=== PATIENT | male | born 1980 | race Caucasian/White ===

== ENCOUNTER 2019-11-07 21:22 | Inpatient (IN) | payer SELFPAY ==
[~2019-11-07] VITALS: Ht 180.3 cm; Wt 97.2 kg
[2019-11-07 21:36] VITALS: BP 143/103
[2019-11-07 22:29] LABS: BASO % 0.3 % (0.0-1.0); EOS # 0.1 10*3/uL (0.0-0.4); EOS % 1.4 % (1.0-4.0); HEMATOCRIT 47.2 % (42.0-52.0); HEMOGLOBIN 17.2 g/dl (14.0-18.0); LYMPH # 1.7 10*3/uL (1.3-4.4); LYMPH % 28.7 % (27.0-41.0); MEAN CELL VOLUME 101.9 fl (80.0-94.0); MEAN CORPUSCULAR HGB 37.1 pg (27.0-31.0); MEAN CORPUSCULAR HGB CONC 36.4 g/dl (33.0-37.0); MEAN PLATELET VOLUME 10.6 fl (9.6-12.3); MONO # 0.4 10*3/uL (0.1-1.0); MONO % 6.1 % (3.0-9.0); NEUT # 3.7 10*3/uL (2.3-7.9); NEUT % 63.2 % (47.0-73.0); PLATELET COUNT AUTOMATED 89 10*3/uL (130-400); RED BLOOD COUNT 4.63 10*6/uL (4.50-5.90); WHITE BLOOD COUNT 5.9 10*3/uL (4.8-10.8)
[2019-11-07 22:42] LABS: CHLORIDE 93 mmol/L (98-107); CREATININE 1.25 mg/dL (0.70-1.30); POTASSIUM 3.7 mmol/L (3.5-5.1); SODIUM 127 mmol/L (136-145)
[2019-11-07 22:51] LABS: BUN 10 mg/dl (7-24); ETHYL ALCOHOL < 3.0 mg/dl (<3)
[2019-11-07 22:52] LABS: ACETAMINOPHEN (TYLENOL) < 5.0 ug/ml (10-30)
[2019-11-07 22:59] LABS: BILIRUBIN NEGATIVE (NEGATIVE); BLOOD NEGATIVE (NEGATIVE); CLARITY CLEAR (CLEAR); COLOR ORANGE (YELLOW); GLUCOSE NEGATIVE (NEGATIVE); KETONE NEGATIVE (NEGATIVE); NITRITE NEGATIVE (NEGATIVE); PH 6.5 (5.0-9.0); SPECIFIC GRAVITY 1.015 (1.005-1.030)
[2019-11-07 23:00] LABS: LEUKO ESTERASE NEGATIVE (NEGATIVE)
[2019-11-07 23:14] LABS: URINE AMPHETAMINES < 1000 (1000ng/ml); URINE BARBITURATES < 200 (200ng/ml); URINE BENZODIAZEPINES < 200 (200ng/ml); URINE CANNABINOIDS (THC) < 50 (50ng/ml); URINE COCAINE < 300 (300ng/ml); URINE METHADONE < 300 (300ng/ml); URINE OPIATES < 300 (300ng/ml); URINE PHENCYCLIDINE < 25 (25ng/ml)
[2019-11-07 23:37] LABS: ALBUMIN 3.4 gm/dl (3.1-4.5)
--- NOTE | 2019-11-07 23:52 | NUR ---
PATIENT RESTING COMFORTABLY IN BED AT THIS TIME WITH EYES CLOSED. IV INFUSING PER ORDERS. RN WILL CONTINUE TO MONITOR.
[2019-11-08 00:45] VITALS: BP 140/94
--- NOTE | 2019-11-08 01:21 | NUR ---
Patient with noticable tremors in upper extremities. Restless legs, muscle aches, cold sweats, stomach discomfort. Ativan, zofran, robaxin, vistaril, bentyl given. Will monitor and reassess.
--- NOTE | 2019-11-08 03:07 | NUR ---
Patient awake, no agitation, still noticeable tremors. Asking for a snack. Denies any nausea at this time.
[2019-11-08 04:00] VITALS: BP 118/70
[2019-11-08 08:00] VITALS: BP 125/77
[2019-11-08 08:55] LABS: BASO % 0.5 % (0.0-1.0); EOS # 0.1 10*3/uL (0.0-0.4); HEMATOCRIT 45.2 % (42.0-52.0); HEMOGLOBIN 15.5 g/dl (14.0-18.0); LYMPH # 2.6 10*3/uL (1.3-4.4); LYMPH % 43.9 % (27.0-41.0); MEAN CELL VOLUME 104.9 fl (80.0-94.0); MEAN CORPUSCULAR HGB CONC 34.3 g/dl (33.0-37.0); MONO # 0.3 10*3/uL (0.1-1.0); MONO % 5.7 % (3.0-9.0); NEUT # 2.8 10*3/uL (2.3-7.9); NEUT % 48.4 % (47.0-73.0); NUCLEATED RED BLOOD CELL 0.3 % (0.0-0.0); PLATELET COUNT AUTOMATED 73 10*3/uL (130-400); RED BLOOD COUNT 4.31 10*6/uL (4.50-5.90); RED CELL DISTRI WIDTH 14.1 % (0-14.5); WHITE BLOOD COUNT 5.8 10*3/uL (4.8-10.8)
[2019-11-08 10:04] LABS: ALKALINE PHOSPHATASE 145 U/L (45-117); BUN 6 mg/dl (7-24); CHLORIDE 97 mmol/L (98-107); CREATININE 1.44 mg/dL (0.70-1.30); PHOSPHOROUS 2.2 mg/dL (2.5-4.9); POTASSIUM 3.8 mmol/L (3.5-5.1); SGOT/AST 246 IU/L (3-35); SGPT/ALT 129 U/L (12-78); SODIUM 133 mmol/L (136-145); TOTAL PROTEIN 7.3 gm/dL (6.4-8.2)
[2019-11-08 10:19] LABS: CHOLESTEROL 413 mg/dL (<200); HDL CHOLESTEROL 50 mg/dl (40-60)
[2019-11-08 10:20] LABS: TRIGLYCERIDES 1614 mg/dl (<150)
[2019-11-08 12:00] VITALS: BP 129/89
--- NOTE | 2019-11-08 12:06 | NUR ---
pt remains with visable tremors, has somewhat difficulity holding a glass steady to drink water
--- NOTE | 2019-11-08 12:06 | NUR ---
prn robaxin,bentyl,vistaril given for etoh withdrawal
--- NOTE | 2019-11-08 13:57 | NUR ---
PRN MEDS APPEAR TO BE EFFECTIVE, PT RESTING QUIETLY, WITH NO TREMORS NOTED
[2019-11-08 16:00] VITALS: BP 134/89
--- NOTE | 2019-11-08 16:52 | NUR ---
[place] STAFF IN TO SEE PATIENT. PATIENT DOES NOT MEET [place]. PROVIDED PATIENT WITH REFERRAL OPTIONS. BONIFACIO ALFONSO B.A. [employer]
[2019-11-08 20:00] VITALS: BP 122/77
--- NOTE | 2019-11-08 20:00 | NUR ---
Patient resting, no signs of distress. Awoke easily and denied any needs at this time. Patient has noticeable tremors to upper extremities. Appropriate at this time. Will continue to monitor.
[2019-11-09] VITALS: BP 109/70
[2019-11-09 04:00] VITALS: BP 136/94
--- NOTE | 2019-11-09 04:37 | NUR ---
Patient has slept through the night, with no distress. Awakes easily for meds and labs. Patient denies any needs at this time. Patient appropriate, no signs of agitation or aggression. Will continue to monitor.
[2019-11-09 05:01] LABS: BUN 5 mg/dl (7-24); CHLORIDE 105 mmol/L (98-107); CREATININE 1.28 mg/dL (0.70-1.30); POTASSIUM 3.6 mmol/L (3.5-5.1); SODIUM 140 mmol/L (136-145)
[2019-11-09 08:00] VITALS: BP 130/93
--- NOTE | 2019-11-09 11:38 | NUR ---
REQUIP HAS BEEN EFFECTIVE FOR RELIEF OF LEG CRAMPS
--- NOTE | 2019-11-09 12:39 | NUR ---
BENDRYL MODERATELY EFFECTIVE
[2019-11-09 16:00] VITALS: BP 130/64
--- NOTE | 2019-11-09 16:25 | NUR ---
PATIENT ARRIVED TO UNIT, ORIENTED TO ROOM, SEE SHIFT ASSESSMENTS FOR DETAILS.
--- NOTE | 2019-11-09 17:32 | NUR ---
MEDICATED WITH PRN PO VISTARIL FOR ANXIETY AND ITCH TO TOP OF THE SCALP, TYLENOL FOR CHEST/RIBS DISCOMFORT, BENTYL FOR ABDOMINAL CRAMPS, ROBAXIN FOR MUSCLE CRAMPS, ALSO ADMINISTERED SCHEDULED ATIVAN FOR GROSS HAND TREMORS/ANXIETY.
--- NOTE | 2019-11-09 18:30 | NUR ---
PRN MEDICATIONS GIVEN EARLIER SOMEWHAT EFFECTIVE, PER PATIENT.
[2019-11-09 20:00] VITALS: BP 138/94
[2019-11-10] VITALS: BP 140/94
--- NOTE | 2019-11-10 02:32 | NUR ---
24 HR chart check completed.
--- NOTE | 2019-11-10 08:40 | NUR ---
ADMINISTERED PRN IV ATIVAN FOR TREMORS/ANXIETY.
--- NOTE | 2019-11-10 09:30 | NUR ---
PRN IV ATIVAN EFFECTIVE, PER PATIENT
[2019-11-10] MEDS ORDERED: REQUIP2 MG PO (09:52)
[2019-11-10] MEDS ORDERED: ATARAX,VISTARIL50 MG PO (09:52)
[2019-11-10] MEDS ORDERED: ZOFRAN4 MG PO (09:52)
[2019-11-10 12:00] VITALS: BP 134/83
--- NOTE | 2019-11-10 13:33 | NUR ---
Discharge instructions reviewed with patient/family. Patient receptive and verbalizes understanding. Follow-up care arranged. Written instructions given to patient/family. PATIENT DISCHARGED TO [facility], AMBULATORY, FOR TRANSPORT HOME BY PRIVATE VEHICLE WITH FAMILY/FRIEND. ALLISON ALVARADO
== END 2019-11-10 13:33 | disposition home or self-care (01) | DRG 897 ==
LOC: ED 21:22 → ICCU 23:58 → EDHOLD 23:58 → ICCU 11-08 00:20 → 5E 11-09 17:02
PROVIDERS: Internal Medicine; Student in an Organized Health Care Education/Training Program; ADMIT Family Medicine
DX: F10.239 Alcohol dependence with withdrawal, unspecified (principal); E87.1 Hypo-osmolality and hyponatremia; E44.0 Moderate protein-calorie malnutrition; R03.0 Elevated blood-pressure reading, without diagnosis of hypertension; D75.89 Other specified diseases of blood and blood-forming organs; D69.6 Thrombocytopenia, unspecified; E87.8 Other disorders of electrolyte and fluid balance, not elsewhere classified; R73.9 Hyperglycemia, unspecified; F41.9 Anxiety disorder, unspecified; F17.210 Nicotine dependence, cigarettes, uncomplicated; Z68.29 Body mass index [BMI] 29.0-29.9, adult; Z80.51 Family history of malignant neoplasm of kidney